=== PATIENT | female | born 1990 | race Caucasian/White ===

== ENCOUNTER 2019-11-30 10:04 | Inpatient (IN) | payer BC ==
[~2019-11-30] VITALS: Ht 175.3 cm; Wt 95.5 kg
[2019-12-07] MEDS ORDERED: NEWBORN KIT ONE (21:24)
[2019-12-07 21:38] VITALS: BP 130/78
[2019-12-07] MEDS ORDERED: LACTATED RINGERS 1,000 ML IV SCH (22:35)
[2019-12-07] MEDS ORDERED: D5%-LACTATED RINGERS 1,000 ML IV SCH (22:35)
[2019-12-07] MEDS ORDERED: OXYTOCIN 30U/ 0.9% NaCL 500ML 500 ML IV ONE (22:35)
[2019-12-07] MEDS ORDERED: MISOPROSTOL 25 MCG TABLET ONE (22:54)
[2019-12-07] MEDS ORDERED: TERBUTALINE 1 MG/ML, 1ML IVPush PRN (23:00)
[2019-12-07] MEDS ORDERED: CALCIUM CARBONATE 500 MG TAB.CHEW PO PRN (23:00)
[2019-12-07] MEDS ORDERED: TERBUTALINE 1 MG/ML, 1ML SQ PRN (23:00)
[2019-12-07] MEDS ORDERED: ONDANSETRON 2MG/ML, 2ML IVPush PRN (23:00)
[2019-12-07] MEDS ORDERED: FENTANYL PF 100 MCG/2ML IVPush PRN (23:00)
[2019-12-07] MEDS ORDERED: FENTANYL PF 100 MCG/2ML IV PRN (23:00)
[2019-12-07] MEDS ORDERED: MISOPROSTOL 25 MCG TABLET VG PRN (23:30)
[2019-12-07 23:34] LABS: BASOPHILS # (AUTO) 0.03 x10^3/uL (0-0.1); BASOPHILS % (AUTO) 0 % (0-1); EOSINOPHILS # (AUTO) 0.04 x10^3/uL (0-0.4); EOSINOPHILS % (AUTO) 1 % (1-7); LYMPHOCYTES # (AUTO) 1.67 x10^3/uL (1-3.4); LYMPHOCYTES % (AUTO) 20 % (22-44); MD NO; MEAN CORPUSCULAR HEMOGLOBIN 23.2 pg (27.0-34.8); MEAN CORPUSCULAR HGB CONC 32.1 g/dL (32.4-35.8); MEAN CORPUSCULAR VOLUME 72.3 fL (80-100); MEAN PLATELET VOLUME 12.6 fL (7.4-10.4); MONOCYTES # (AUTO) 0.47 x10^3/uL (0.2-0.8); MONOCYTES % (AUTO) 6 % (2-9); NEUTROPHILS # (AUTO) 6.03 x10^3/uL (1.8-6.8); NEUTROPHILS % (AUTO) 73 % (42-75); PLATELET COUNT 138 x10^3/uL (130-400); RED BLOOD COUNT 4.76 x10^6/uL (3.82-5.3); RED CELL DISTRIBUTION WIDTH 16.7 % (9.6-15.2)
[2019-12-08] MEDS ORDERED: FENTANYL PF 100 MCG/2ML ONE ×2 (02:24→03:13)
[2019-12-08] MEDS ORDERED: FENTANYL/BUPIV./NS/PF 250 ML EPIDCONT SCH ×2 (02:36→04:27)
[2019-12-08] MEDS ORDERED: LACTATED RINGERS 1,000 ML IV SCH (02:36)
[2019-12-08] MEDS ORDERED: EPHEDRINE 50 MG/ML, 1ML IVPush PRN ×2 (03:00→04:30)
[2019-12-08] MEDS ORDERED: OXYTOCIN 30U/ 0.9% NaCL 500ML 500 ML IV PRN (03:04)
[2019-12-08] MEDS ORDERED: FENTANYL/BUPIV./NS/PF 0 ML EPIDCONT ONE (03:13)
[2019-12-08] MEDS: LACTATED RINGERS 1,000 ML IVBOLUS PRN ×2 (03:20→04:26)
[2019-12-08] MEDS ORDERED: FENTANYL PF 500 MCG, BUPIVACAINE/PF 0.5%, 30ML 62.5 ML in SODIUM CHLORIDE 0.9% 177.5 ML EPIDCONT SCH (03:30)
[2019-12-08] MEDS ORDERED: BUPIVACAINE 0.25% ONE ×2 (03:55→06:22)
[2019-12-08] MEDS ORDERED: ONDANSETRON 2MG/ML, 2ML ONE (04:18)
[2019-12-08] MEDS ORDERED: OXYTOCIN 30U/ 0.9% NaCL 500ML 500 ML ONE (04:18)
[2019-12-08] MEDS: LACTATED RINGERS 1,000 ML IV SCH ×3 (04:27→20:27)
[2019-12-08] MEDS ORDERED: LACTATED RINGERS 1,000 ML IVBOLUS PRN (04:30)
[2019-12-08] MEDS: OXYTOCIN 30U/ 0.9% NaCL 500ML 500 ML IV SCH ×2 (10:21→20:21)
[2019-12-08] MEDS ORDERED: METHYLERGONOVINE 0.2 MG/ML IM PRN (10:30)
[2019-12-08] MEDS ORDERED: SIMETHICONE 80 MG CHEW TAB PO PRN (10:30)
[2019-12-08] MEDS ORDERED: TRANEXAMIC ACID 1,000 MG in SODIUM CHLORIDE 0.9% 100 ML IVPB ONE (10:30)
[2019-12-08] MEDS ORDERED: OXYcodone/APAP 5/325MG TABLET PO PRN (10:30)
[2019-12-08] MEDS ORDERED: CARBOPROST TROMETHAMINE 250 MCG/ML, 1ML IM PRN (10:30)
[2019-12-08] MEDS ORDERED: MISOPROSTOL 200 MCG TABLET PR PRN (10:30)
[2019-12-08 13:50] VITALS: BP 110/70
[2019-12-08] MEDS: OXYcodone/APAP 5/325MG TABLET PO PRN ×2 (16:07→21:58)
[2019-12-08] MEDS: IBUPROFEN 800 MG TABLET PO PRN (16:07)
[2019-12-08 18:57] LABS: BASOPHILS # (AUTO) 0.02 x10^3/uL (0-0.1); BASOPHILS % (AUTO) 0 % (0-1); EOSINOPHILS # (AUTO) 0.03 x10^3/uL (0-0.4); EOSINOPHILS % (AUTO) 0 % (1-7); LYMPHOCYTES # (AUTO) 1.05 x10^3/uL (1-3.4); LYMPHOCYTES % (AUTO) 11 % (22-44); MD SCAN; MEAN CORPUSCULAR HEMOGLOBIN 23.6 pg (27.0-34.8); MEAN CORPUSCULAR VOLUME 71.3 fL (80-100); MEAN PLATELET VOLUME 13.3 fL (7.4-10.4); MONOCYTES # (AUTO) 0.49 x10^3/uL (0.2-0.8); MONOCYTES % (AUTO) 5 % (2-9); NEUTROPHILS % (AUTO) 83 % (42-75); PLATELET COUNT 109 x10^3/uL (130-400); RED BLOOD COUNT 4.33 x10^6/uL (3.82-5.3); RED CELL DISTRIBUTION WIDTH 16.5 % (9.6-15.2)
[2019-12-08 20:00] VITALS: BP 110/71
[2019-12-08] MEDS: DOCUSATE 100 MG CAPSULE PO PRN (21:58)
[2019-12-09] VITALS: BP 111/72
[2019-12-09] MEDS: IBUPROFEN 800 MG TABLET PO PRN (03:37)
[2019-12-09] MEDS: OXYcodone/APAP 5/325MG TABLET PO PRN (03:37)
[2019-12-09 04:00] VITALS: BP 112/74
[2019-12-09] MEDS ORDERED: IBUP-1222 PO (07:00)
[2019-12-09] MEDS ORDERED: OXYC-302 PO (07:00)
[2019-12-09] MEDS: DOCUSATE 100 MG CAPSULE PO PRN (07:36)
[2019-12-09 07:54] VITALS: BP 118/76
[2019-12-09] MEDS ORDERED: PRENATAL VIT/IRON/FA 1 EACH TABLET PO SCH (09:00)
== END 2019-12-09 12:55 | disposition home or self-care (01) | DRG 806 ==
LOC: LDIP 12-07 21:10 → 2NW 12-08 13:26
PROVIDERS: ADMIT Obstetrics & Gynecology; ATTEND Obstetrics & Gynecology
PROC: 10E0XZZ Delivery of Products of Conception, External Approach (ICD-10-PCS; principal; 2019-12-08)
PROC: 0KQM0ZZ Repair Perineum Muscle, Open Approach (ICD-10-PCS; 2019-12-08)
PROC: 3E033VJ Introduction of Other Hormone into Peripheral Vein, Percutaneous Approach (ICD-10-PCS; 2019-12-08)
DX: O48.0 Post-term pregnancy (principal); O99.354 Diseases of the nervous system complicating childbirth; Z37.0 Single live birth; Z3A.40 40 weeks gestation of pregnancy; O70.1 Second degree perineal laceration during delivery; G43.909 Migraine, unspecified, not intractable, without status migrainosus
CPT/HCPCS: 36415; J7121; 82803; 85025; 86592; 86850; 86900; G0378; J2405; J3010; J2590; J7120

== ENCOUNTER 2019-11-30 11:52 | Outpatient (CLI) | payer BC ==
[~2019-11-30] VITALS: Ht 175.3 cm; Wt 95.5 kg
[2019-11-30 12:26] VITALS: BP 118/81
== END 2019-11-30 13:45 | disposition home or self-care (01) ==
LOC: LDOP 11:52
PROVIDERS: ATTEND Obstetrics & Gynecology
DX: O42.92 Full-term premature rupture of membranes, unspecified as to length of time between rupture and onset of labor (principal); Z3A.39 39 weeks gestation of pregnancy
CPT/HCPCS: 84112; 99201; G0463

== ENCOUNTER 2019-12-13 19:23 | Emergency (ER) | payer BC ==
[~2019-12-13] VITALS: Ht 175.3 cm; Wt 92.3 kg
[~2019-12-13 19:23] MED LIST: IBUP-1222 PO; OXYC-302 PO
[2019-12-13 19:43] VITALS: BP 137/82
[2019-12-13 20:16] LABS: ALBUMIN 2.8 g/dL (3.4-5.0); ANION GAP 6 mmol/L (5-15); CALCIUM 8.4 mg/dL (8.5-10.1); CHLORIDE 107 mmol/L (98-107); CREATININE 0.96 mg/dL (0.55-1.02)
[2019-12-13 20:17] LABS: BASOPHILS # (AUTO) 0.03 x10^3/uL (0-0.1); BASOPHILS % (AUTO) 0 % (0-1); EOSINOPHILS # (AUTO) 0.07 x10^3/uL (0-0.4); EOSINOPHILS % (AUTO) 1 % (1-7); LYMPHOCYTES # (AUTO) 1.37 x10^3/uL (1-3.4); LYMPHOCYTES % (AUTO) 16 % (22-44); MEAN CORPUSCULAR HEMOGLOBIN 23.3 pg (27.0-34.8); MEAN CORPUSCULAR HGB CONC 32.2 g/dL (32.4-35.8); MEAN CORPUSCULAR VOLUME 72.4 fL (80-100); MEAN PLATELET VOLUME 11.3 fL (7.4-10.4); MONOCYTES # (AUTO) 0.47 x10^3/uL (0.2-0.8); MONOCYTES % (AUTO) 5 % (2-9); NEUTROPHILS # (AUTO) 6.74 x10^3/uL (1.8-6.8); NEUTROPHILS % (AUTO) 78 % (42-75); PLATELET COUNT 177 x10^3/uL (130-400); RED BLOOD COUNT 4.52 x10^6/uL (3.82-5.3); RED CELL DISTRIBUTION WIDTH 17.1 % (9.6-15.2)
[2019-12-13 20:18] LABS: MD NO
--- NOTE | 2019-12-13 20:38 | NUR ---
Attempted to room pt from lobby. [id number]
--- NOTE | 2019-12-13 21:18 | NUR ---
DR CARDONA AT BS. PT ATTACHED TO VS MONITORS. VSS AT THIS TIME. PT EDUCATED ON ER PROCESS AND POC AND VERBALIZES UNDERSTANDING. CALL LIGHT IS WITHIN REACH.
[2019-12-13 21:32] LABS: MICROSCOPIC INDICATED
[2019-12-13 21:33] LABS: CULTURE INDICATED? YES
[2019-12-13] MEDS ORDERED: HYDROCORTISONE/PRAM CRM 2.5-1%, 4GM EXT ONE (22:00)
[2019-12-13] MEDS ORDERED: NITROFURANTOIN (MACROBID) 100 MG CAPSULE PO ONE (23:00)
[2019-12-13] MEDS ORDERED: HYDROCORTISONE/PRAMOXINE CRM 1-1%, 30GM EXT ONE (23:00)
[2019-12-13] MEDS ORDERED: NITROFURANTOIN (MACROBID) 100 MG CAPSULE ONE (23:05)
== END 2019-12-13 23:11 | disposition home or self-care (01) ==
LOC: ED 22:45
DX: R10.2 Pelvic and perineal pain (principal); R30.0 Dysuria
CPT/HCPCS: 36415; 80048; 81001; 82040; 85025; 87086; 99283

== ENCOUNTER 2021-03-25 09:31 | Emergency (ER) | payer BC ==
[~2021-03-25] VITALS: Ht 175.3 cm; Wt 85.7 kg
[~2021-03-25 09:31] MED LIST changes: -OXYC-302 PO; +OXYC1TAB14 PO
--- NOTE | 2021-03-25 10:43 | NUR ---
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
[2021-03-25] MEDS ORDERED: METOCLOPRAMIDE 5 MG/ML, 2ML ONE (10:59)
[2021-03-25] MEDS ORDERED: SODIUM CHLORIDE FLUSH 10ML SYR IVF ONE (11:30)
[2021-03-25] MEDS ORDERED: SODIUM CHLORIDE 0.9% 1,000ML IVBOLUS ONE (11:30)
[2021-03-25] MEDS ORDERED: METOCLOPRAMIDE 5 MG/ML, 2ML IVPush ONE (11:30)
[2021-03-25 11:33] LABS: BASOPHILS % (AUTO) 0 % (0-1); EOSINOPHILS % (AUTO) 1 % (1-7); LYMPHOCYTES % (AUTO) 6 % (22-44); MEAN CORPUSCULAR HEMOGLOBIN 26.3 pg (27.0-34.8); MEAN CORPUSCULAR HGB CONC 33.6 g/dL (32.4-35.8); MEAN PLATELET VOLUME 10.2 fL (7.4-10.4); MONOCYTES % (AUTO) 3 % (2-9); NEUTROPHILS % (AUTO) 90 % (42-75); PLATELET COUNT 121 x10^3/uL (130-400); RED BLOOD COUNT 5.24 x10^6/uL (3.82-5.3); RED CELL DISTRIBUTION WIDTH 15.5 % (9.6-15.2)
[2021-03-25 11:42] VITALS: BP 107/55
[2021-03-25 11:45] LABS: ALANINE AMINOTRANSFERASE 21 U/L (12-78); ALBUMIN 3.2 g/dL (3.4-5.0); ANION GAP 9 mmol/L (5-15); CHLORIDE 105 mmol/L (98-107); CREATININE 0.55 mg/dL (0.55-1.02)
[2021-03-25 11:47] LABS: ALKALINE PHOSPHATASE 61 U/L (45-117); BILIRUBIN,TOTAL 0.4 mg/dL (0.2-1.0); TOTAL PROTEIN 7.8 g/dL (6.4-8.2)
[2021-03-25 12:02] LABS: MICROSCOPIC NOT IND
--- NOTE | 2021-03-25 12:41 | NUR ---
pt sleeping. vss
== END 2021-03-25 13:00 | disposition home or self-care (01) ==
LOC: ED 10:51
DX: O47.02 False labor before 37 completed weeks of gestation, second trimester (principal); R11.2 Nausea with vomiting, unspecified; E86.0 Dehydration; R10.31 Right lower quadrant pain; R05 Cough; Z3A.20 20 weeks gestation of pregnancy; Z88.0 Allergy status to penicillin
CPT/HCPCS: 36415; 71045; 80053; 81003; 83690; 85025; 96361; 96374; 99284; J2765; J7030

== ENCOUNTER 2021-05-09 10:45 | Outpatient (CLI) | payer BC ==
[~2021-05-09] VITALS: Ht 175.3 cm; Wt 90.5 kg
== END 2021-05-09 12:30 | disposition home or self-care (01) ==
LOC: LDOP 10:45
PROVIDERS: ATTEND Obstetrics & Gynecology
DX: O26.892 Other specified pregnancy related conditions, second trimester (principal); I83.92 Asymptomatic varicose veins of left lower extremity; Z3A.26 26 weeks gestation of pregnancy
CPT/HCPCS: 99211; G0463